=== PATIENT | female | born 1960 | race Two or more races ===

== ENCOUNTER 2024-01-02 08:20 | Day surgery (SDC) | payer BC, SELFPAY ==
[2023-12-30 15:25] VITALS: BMI 28.3
[2024-01-02] VITALS (8 sets, daily range): BP systolic 121–166; BP diastolic 75–97; PULSE 61–74; RESP 11–18; TEMP 36.7; O2SAT 96–99; BMI 28.9
[2024-01-02] MEDS: DiphenhydrAMINE INJ 50 MG/ML VIAL 25 MG IV (10:29)
[2024-01-02] MEDS: fentaNYL CIT INJ 50 mCg/ML AMP 2ML (ASD USE ONLY) IV (10:36)
[2024-01-02] MEDS: MIDAZOLAM INJ 1 MG/ML VIAL 2 ML (ASD USE ONLY) 2 MG IV (10:36)
== END 2024-01-02 11:35 | disposition home or self-care (01) ==
PROVIDERS: PCP Physician Assistant; Referring Provider Specialist; Visit Provider Specialist
PROC: 0DBE8ZX Excision of Large Intestine, Via Natural or Artificial Opening Endoscopic, Diagnostic (ICD-10-PCS; CPT 45380; principal; 2024-01-02 09:15)
DX: Z12.11 Encounter for screening for malignant neoplasm of colon (principal); D12.8 Benign neoplasm of rectum; K62.1 Rectal polyp
CPT/HCPCS: 45380; A4649; J1200; J2250; J3010

== ENCOUNTER → 2024-02-24 | Outpatient (CLI) | payer BC, SELFPAY ==
--- NOTE | 2024-02-24 15:08 | XR_ITS ---
Examination: Tibia-Fibula, right , 2 views Technique: Tibia-fibula AP lateral 2 views Date and time of exam: February 24, 2024 1517 hrs. Indications: Right lower leg pain beginning one month ago. Findings: Moderate osteopenia Mild narrowing lateral joint space Mild narrowing tibiotalar joint No fracture or dislocation No cortical bone destruction Impression: No fracture or dislocation No cortical bone destruction
--- NOTE | 2024-02-24 15:08 | XR_ITS ---
Examination:Right hip AP, lateral, AP pelvis 3 views Technique: Hip AP lateral, AP pelvis, 3 views Exam date and time:February 24, 2024 1517 hrs. Indications: Right hip pain beginning one month ago. Findings: Moderate osteopenia No right hip fracture or dislocation Mild to moderate bilateral hip osteoarthritis Impression: Mild to moderate bilateral hip osteoarthritis.
== END | disposition home or self-care (01) ==
PROVIDERS: PCP Physician Assistant; Referring Provider Physician Assistant; Visit Provider Physician Assistant
DX: M16.0 Bilateral primary osteoarthritis of hip (principal); M79.661 Pain in right lower leg
CPT/HCPCS: 73502; 73590

== ENCOUNTER → 2025-01-17 | Outpatient (CLI) | payer BC, SELFPAY ==
--- NOTE | 2025-01-17 15:30 | XR_ITS ---
EXAMINATION: Ultrasound soft tissue neck TECHNIQUE: Grayscale sonographic images soft tissue neck Date and time: January 17, 2025, 1532 hours INDICATIONS: Right neck swelling and pain beginning 1 year ago. FINDINGS: Multiple lymph nodes at the area of concern right neck, the largest 29 x 15 mm, 15 x 8 mm, 14 x 8 mm, 19 x 10 mm IMPRESSION: Pathologic appearing cervical lymphadenopathy, recommend CT soft tissue neck post intravenous contrast follow-up
== END | disposition home or self-care (01) ==
LOC: CDIM 15:11
PROVIDERS: PCP Physician Assistant; Referring Provider Physician Assistant; Visit Provider Physician Assistant
DX: R59.0 Localized enlarged lymph nodes (principal)
CPT/HCPCS: 76536